=== PATIENT | male | born 1930 | race Caucasian/White ===

== ENCOUNTER 2019-06-07 10:45 | Inpatient (IN) | payer OTHER ==
[~2019-06-07] VITALS: Ht 167.6 cm; Wt 60.9 kg
--- NOTE | 2019-06-07 11:05 | NUR ---
PATIENT BIBA. PATIENT AND ORIENTED TO ROOM AND CALL LIGHT. PATIENT A/O X4. PATIENT HAS GENERALIZED WEAKNESS. PATIENTS BED TO LOWEST POSITION. PATIENT PLACE ON DIRECTOR DIETETICS DEPARTMENT AT THIS TIME. PATIENT STABLE WITH NO S/S OF DISTRESS, WILL CONTINUE TO MONITOR.
[2019-06-07 11:17] LABS: BASOPHIL % 0.3 % (0-2); PLATELET COUNT 208 x10^3mcL (130-400)
[2019-06-07 11:18] LABS: RED CELL DISTRIBUTION WIDTH 15.9 % (11.5-14.5)
--- NOTE | 2019-06-07 11:23 | NUR ---
[facility]IENT TO [facility] AT THIS TIME.
--- NOTE | 2019-06-07 11:43 | NUR ---
MADE PATIENT AND FAMILY AWARE THAT URINE SAMPLE IS NEEDED, PATIENT REFUSES STRAIGHT CATH AT THIS TIME AND STATES THAT HE WILL ATTEMPT TO GO BEDSIDE. URINAL GIVEN TO PATIENT AT THIS TIME. WILL CONTINUE TO MONITOR.
[2019-06-07 11:46] LABS: CALCIUM 8.3 mg/dL (8.5-10.1); CARBON DIOXIDE 26.2 mmol/L (21-32); CHLORIDE SERUM 103 mmol/L (98-107); CREATININE SERUM 1.3 mg/dL (0.7-1.3); GLUCOSE SERUM 193 mg/dL (74-106); POTASSIUM SERUM 5.1 mmol/L (3.5-5.1); SODIUM SERUM 138 mmol/L (136-145)
[2019-06-07 11:58] LABS: ALKALINE PHOSPHATASE 87 U/L (46-116); ALT/SGPT 13 U/L (16-63); AST/SGOT 18 U/L (15-37); BILIRUBIN TOTAL 0.8 mg/dL (0.20-1.00); HDL CHOLESTEROL 49 mg/dL (40-60); LIPASE 115 IU/L (73-393); MAGNESIUM 1.6 mg/dL (1.8-2.4); T4(THYROXINE) 11.1 ug/dL (4.7-13.3); TOTAL PROTEIN, SERUM 6.5 g/dL (6.4-8.2)
[2019-06-07 11:59] LABS: ALBUMIN 3.2 g/dL (3.4-5.0); CHOLESTEROL 105 mg/dL (<200)
--- NOTE | 2019-06-07 12:34 | NUR ---
PATIENT REMOVED AT IV AT THIS TIME. PATIENT ASSESSED, NO PROBLEMS NOTED. IV CATHETER REMOVED. ARM ELEVATED. WILL ASSESS FOR NEW IV ACCESS AT THIS TIME
[2019-06-07 13:01] LABS: UA SPECIFIC GRAVITY 1.015 (1.005-1.035); microscopic required? YES; urine erythrocyte TRACE (NEGATIVE)
[2019-06-07 13:11] LABS: AMPHETAMINE QUAL UR NONE DETECTED (See below)
--- NOTE | 2019-06-07 13:15 | NUR ---
NEW IV ACCESS TO RFA. IV INTACT AND PATENT.
--- NOTE | 2019-06-07 13:15 | NUR ---
INFORMED FAMILY AND PATENT TO NOT REMOVE IV. FAMILY AND PATIENT VERBALIZED UNDERSTANDING AT THIS TIME.
[2019-06-07] MEDS ORDERED: GLIPIZIDE5 M2 PO (14:26)
[2019-06-07] MEDS ORDERED: CARVEDILOL3.125 M1 (14:28)
[2019-06-07] MEDS ORDERED: GOOD SENSE OMEP20 MG (14:28)
[2019-06-07] MEDS ORDERED: ARICEPT5 MG (14:28)
[2019-06-07] MEDS ORDERED: LISINOPRIL2.5 MG (14:28)
--- NOTE | 2019-06-07 14:48 | NUR ---
RECEIVED PT FROM ED VIA [facility], CAME IN DUE TO WEAKNESS X1 DAY AND COUGH SINCE FRIDAY. AAOX2 (PERSON, PLACE AND BIRTHDATE). ABLE TO FOLLOW COMMANDS. SPEECH IS CLEAR. NO SOB NOTED, LUNG SOUNDS CTA, O2 SAT=99%, RA. NOTED PT HAS RUNNY NOSE. W/ PRODUCTIVE COUGH, ABLE TO EXPECTORATE WHITE PHLEGM. DENIES CHEST PAIN/PRESSURE, SR W/ BBB. DENIES ABDOMINAL DISCOMFORT. ABDOMEN IS SOFT. PER PT'S DAUGHTER, PT HAS FREQUENT URINATION. SKIN IS DRY AND INTACT. IV SITE PATENT AND INTACT. SIDE RAILS UPX2. CALL LIGHT ON REACH. HOB ELEVATED AT 30 DEG. BED ALARM ON. ENDORSED TO PRIMARY NURSE NICOLAS FOR CONTINUITY OF CARE
[2019-06-07 15:16] VITALS: BP 102/50
[2019-06-07 15:20] VITALS: Ht 167.6 cm; Wt 60.9 kg
--- NOTE | 2019-06-07 15:44 | NUR ---
DR. SOMMERS AT BEDSIDE EXAM AND INTERVIEW FAMILY MEMBERS AT BEDSIDE, PATIENT GAVE INFO TO DR. SOMMERS; PER DR. SOMMERS WILL EVAL [PATIENT TOMORROW IF LAB RESULT WNL PATIENT MAY GO HOME. MAG-OXIDE 400MG PO X 1 ADMINISTERED FOR MG 1.6 AND IVF STARTED AT 70ML/HR TO RFA IV. CALL LIGHT WITHIN REACH.
--- NOTE | 2019-06-07 17:56 | NUR ---
REPOSITION PATIENT UP IN BED FOR DINNER, AT BEDSIDE WILL HELP PATIENT WITH HIS DINNER. FINNEY OUTPUT 1000ML DARK JOSE L COLORED NOTED. CALL LIGHT WITHIN REACH.
--- NOTE | 2019-06-07 19:30 | NUR ---
RECEIVED PT FROM [facility]. PT SEEN LYING IN BED, HAS HIS EYES CLOSED, EASILY AROUSABLE TO VERBAL STIMULI. ORIENTED TO PERSON/PLACE/BIRTHDATE. ABLE TO FOLLOW SIMPLE COMMANDS. NO ARM DRIFT/FACIAL DROOP NOTED. NO SOB NOTED, LUNG SOUNDS CTA. O2 SAT-98%, RA. W/ RUNNY NOSE NOTED. DENIES CHEST PAIN/PRESSURE, SR W/ BBB, HR AT 91. DENIES ABDOMINAL DISCOMFORT. W/ CITIZEN OF [place] 16 FINNEY CATHETER DRAINING W/ YELLOW COLORED URINE. IV SITE PATENT AND INTACT. SIDE RAILS UPX2. CLAL LIGHT ON REACH. HOB ELEVATED AT 30 DEG. BED ON THE LOWEST POSITION. BED ALARM ON. WILL CONT TO MONITOR
[2019-06-07 20:03] VITALS: BP 104/52
[2019-06-07 20:04] VITALS: BP 106/68
--- NOTE | 2019-06-07 20:21 | NUR ---
PT'S DAUGHTER AT BEDSIDE. PT HAS EVEN AND UNLABORED BREATHING. NO S/S OF PAIN NOTED. CALL LIGHT ON REACH. WILL CONT TO MONITOR
--- NOTE | 2019-06-07 23:42 | NUR ---
PT HAS HIS EYES CLOSED, NO S/S OF PAIN AND SOB. WILL CONT TO MONITOR
[2019-06-08 04:42] VITALS: BP 130/57
--- NOTE | 2019-06-08 05:15 | NUR ---
DR. SHEPHERD MADE AWARE THAT PT'S RIGHT HAND IS SWOLLEN. RIGHT ARM ELEVATED W/ A PILLOW. PT IS AWAKE AND ALERT, NO C/O PAIN AND SOB. PT HAD A SOFT BM, CLEANED AND MADE COMFORTABLE. W/ VINCENTIAN 16 FINNEY CATHETER DRAINING W/ YELLOW COLORED URINE. IV SITE ON THE RFA GAUGE 20 IS PATENT AND INTACT. SIDE RAILS UPX2. CALL LIGHT ON REACH. NEEDS ARE ATTENDED. WILL CONT TO MONITOR
--- NOTE | 2019-06-08 06:59 | NUR ---
ENDORSED TO INCOMING NURSE NICOLAS FOR CONTINUITY OF CARE
--- NOTE | 2019-06-08 07:05 | NUR ---
RECEIVED PATIENT ASLEEP AROUSABLE, NO DISTRESS NOTED. NO C/O PAIN. RH SWELLING NOTED. TELE #6 SR W/ HR 78 NOTED. IV TO LFA INTACT AND INFUSING AT 70ML/HR. CALL LIGHT WITH IN REACH.
[2019-06-08 09:17] VITALS: BP 123/52
--- NOTE | 2019-06-08 10:37 | NUR ---
PATIENT RESTING IN BED NO DISTRESS NOTED, CAME TO VISIT PATIENT AND UPDATE POC. INFORM DOCTOR HAS NOT MAKE ROUND TO SEE PATIENT YET. ALL QUESTIONS ADDRESSED.
--- NOTE | 2019-06-08 12:00 | NUR ---
PATIENT SAT UP IN BED SON ASSIST PATIENT WITH HIS LUNCH. NO NEEDS ATTENDED. NO CHANGED IN TELE MONITORING SR W/ BBB HR 74. CALL LIGHT WITHIN REACH.
[2019-06-08 13:36] LABS: BASOPHIL % 0.4 % (0-2); PLATELET COUNT 194 x10^3mcL (130-400)
[2019-06-08 13:39] LABS: RED CELL DISTRIBUTION WIDTH 15.9 % (11.5-14.5)
[2019-06-08 13:57] LABS: CALCIUM 7.8 mg/dL (8.5-10.1); CARBON DIOXIDE 23.7 mmol/L (21-32); CHLORIDE SERUM 108 mmol/L (98-107); CREATININE SERUM 0.7 mg/dL (0.7-1.3); GLUCOSE SERUM 143 mg/dL (74-106); MAGNESIUM 1.7 mg/dL (1.8-2.4); PHOSPHOROUS 2.4 mg/dL (2.5-4.9); POTASSIUM SERUM 3.6 mmol/L (3.5-5.1); SODIUM SERUM 140 mmol/L (136-145)
--- NOTE | 2019-06-08 14:45 | NUR ---
PATIENT RESTING IN BED AWAKE/ALERT, CALM NO DISTRESS NOTED, NO PAIN REPORTED. CONT TO MONITOR.
[2019-06-08 14:49] VITALS: BP 128/50
--- NOTE | 2019-06-08 16:46 | NUR ---
PATIENT RESTING IN BED COMFORTABLE, NO DISTRESS NOTED. FAMILY MEMBER BACK TO ROOM. UPDATE POC WITH SON AND CM NEED TO ARRANGE HH FOR PT.
--- NOTE | 2019-06-08 18:40 | NUR ---
PATIENT LAYING IN BED COMFORTABLE, FAMILY MEMBERS LEFT. CALL LIGHT WITHIN REACH. BED ALARM IN PLACE DUE TO PATIENT FORGETFUL, WANT TO GET OOB FOR URINATE, REINFORCED PATIENT HAS FINNEY CATH. FOR URINE.
[2019-06-08 19:28] VITALS: BP 139/64
--- NOTE | 2019-06-08 19:28 | NUR ---
RECEIVED PT AWAKE ALERT X2 AND SPEAKS [place] ONLY WITH FAMILY MEMBERS AT BEDSIDE.BREATHIGN EASY AND NON-LABORED.DIMINISHED BREATHSOUNDS.F/C TO YELLOW COLORED URINE.TRACED EDEMA TO BLE.BEDALARM ON AT ALL TIMES.WILL CONTINUE TO MONITOR.
--- NOTE | 2019-06-09 04:36 | NUR ---
PT SLEPT WELL ALL NIGHT.BREATHING EASY AND NON-LABORED WITH OCCASSIONAL COUGHING NOTED.BEDALARM ON AT ALL TIMES.ALL NEEDS ANTICIPATED AND MET.WILL CONTINUE TO MONITOR.
[2019-06-09 05:40] VITALS: BP 143/58
[2019-06-09 06:26] LABS: BASOPHIL % 0.5 % (0-2); PLATELET COUNT 207 x10^3mcL (130-400)
[2019-06-09 06:41] LABS: CALCIUM 8.3 mg/dL (8.5-10.1); CARBON DIOXIDE 26.9 mmol/L (21-32); CHLORIDE SERUM 108 mmol/L (98-107); CREATININE SERUM 0.8 mg/dL (0.7-1.3); GLUCOSE SERUM 119 mg/dL (74-106); MAGNESIUM 1.7 mg/dL (1.8-2.4); PHOSPHOROUS 2.6 mg/dL (2.5-4.9); POTASSIUM SERUM 4.3 mmol/L (3.5-5.1); SODIUM SERUM 140 mmol/L (136-145)
[2019-06-09 08:37] VITALS: BP 146/66
--- NOTE | 2019-06-09 11:11 | NUR ---
TOOK TO THE RESTROOM TO HAVE STOOL. ONLY A SMEAR AND DRY FLAKES NOTED. OFFERED AND GAVE COLACE. GAVE GOOD ALONSO/RECTAL CARE WELL. WILL MONITOR FOR EFFECTIVENESS.
[2019-06-09 12:45] VITALS: BP 109/54
--- NOTE | 2019-06-09 14:18 | NUR ---
FAMILY AT BEDSIDE AND BROUGHT IN FOOD FROM [facility] AND REMINDED THEM HE IS ON A DIET OF [facility]. PATIENT CONSUMED THE FOOD THEY BROUGHT ALREADY.
[2019-06-09 17:00] VITALS: BP 138/51
--- NOTE | 2019-06-09 19:00 | NUR ---
REPORT RECEIVED FROM DAY SHIFT RN. PATIENT WAS SEEN RESTING IN BED COMFORTABLY. NO DISTRESS NOTED. A/OX2 TO PERSON, PLACE. FORGETFUL AND CONFUSED AT TIMES. CLEAR AND APPROPIATE SPEECH. DOES NOT RECALL SITUATION. BREATHING EVEN AND UNLABORED ON ROOM AIR. NO SOB OR RESP DISTRESS NOTED. DENIES CHEST PAIN/PRESSURE. NO C/O PAIN. IV TO THE RAC, INFUSING WELL. PATENT AND INTACT. NO REDNESS OR SWELLING NOTED. FINNEY CATH IN PLACE; DRAINING YELLOW URINE BY GRAVITY. COMFORT AND SAFETY MEASURES IN PLACE. BED IS LOCKED AND IN THE LOWEST POSITION. SIDE RAILS UP X2. CALL LIGHT IS WITHIN REACH. WILL CONTINUE TO MONITOR.
--- NOTE | 2019-06-09 19:00 | NUR ---
REPORT RECEIVED FROM DAY SHIFT RN. PATIENT WAS SEEN RESTING IN BED COMFORTABLY. NO DISTRESS NOTED. A/OX2 TO PERSON, PLACE. FORGETFUL AND CONFUSED AT TIMES. CLEAR AND APPROPIATE SPEECH. DOES NOT RECALL SITUATION. BREATHING EVEN AND UNLABORED ON ROOM AIR. NO SOB OR RESP DISTRESS NOTED. DENIES CHEST PAIN/PRESSURE. NO C/O PAIN. IV TO THE RFA, INFUSING WELL. PATENT AND INTACT. NO REDNESS OR SWELLING NOTED. FINNEY CATH IN PLACE; DRAINING YELLOW URINE BY GRAVITY. COMFORT AND SAFETY MEASURES IN PLACE. BED IS LOCKED AND IN THE LOWEST POSITION. SIDE RAILS UP X2. CALL LIGHT IS WITHIN REACH. WILL CONTINUE TO MONITOR.
[2019-06-09 19:59] VITALS: BP 133/55
--- NOTE | 2019-06-10 00:15 | NUR ---
RESTING IN BED W/ EYES CLOSED. NO DISTRESS NOTED. BREATHING EVEN AND UNLABORED. NO S/S OF PAIN. IVF INFUSING WELL. SAFETY MEASURES IN PLACE. CALL LIGHT IS WITHIN REACH. WILL CONTINUE TO MONITOR.
--- NOTE | 2019-06-10 03:05 | NUR ---
RESTING IN BED AND SAYING HE WANTS TO LEAVE AND REMOVED STAT LOCK. FINNEY CATH IN PLACE. NEW STAT LOCK PLACED. REORIENTED PATIENT WITH CHET KHAN. REPOSITIONED IN BED FOR COMFORT. EDUCATED TO NOT PULL ON FINNEY. CONFUSED. DENIES PAIN. SAFETY MEASURES IN PLACE. IVF INFUSING WELL. CALL LIGHT IS WITHIN REACH. WILL CONTINUE TO MONITOR.
--- NOTE | 2019-06-10 04:00 | NUR ---
PATIENT TRIED TO GET OUT OF BED. IV TO RFA CAME OUT IN THE PROCESS. TOLD PATIENT NEW IV WILL HAVE TO BE PLACED, BUT PATIENT REFUSED. NOTIFIED DR SHEPHERD.
[2019-06-10 05:42] VITALS: BP 148/64
--- NOTE | 2019-06-10 06:11 | NUR ---
RESTING IN LONG INTERVALS THROUGHOUT THE NIGHT. NO ACUTE CHANGES NOTED. NO DISTRESS NOTED. BREATHING EVEN AND UNLABORED ON ROOM AIR. NO C/O PAIN AT THIS TIME. DENIES CP. NO IV ACCESS. FINNEY CLAMPED AT THIS TIME FOR BLADDER TRAINING. ALL NEEDS AND CONCERNS ADDRESSED. SAFETY MEASURES IN PLACE. CALL LIGHT IS WITHIN REACH. WILL ENDORSE CARE TO DAY SHIFT RN.
[2019-06-10 06:31] LABS: BASOPHIL % 0.5 % (0-2); PLATELET COUNT 233 x10^3mcL (130-400)
[2019-06-10 06:42] LABS: CALCIUM 8.3 mg/dL (8.5-10.1); CARBON DIOXIDE 26.1 mmol/L (21-32); CHLORIDE SERUM 105 mmol/L (98-107); CREATININE SERUM 0.8 mg/dL (0.7-1.3); GLUCOSE SERUM 138 mg/dL (74-106); RED CELL DISTRIBUTION WIDTH 15.8 % (11.5-14.5); SODIUM SERUM 138 mmol/L (136-145)
--- NOTE | 2019-06-10 08:00 | NUR ---
PATIENT RECEIVED ALERT AND ORIENTED TIMES TWO. IV OUT AND PATIENT HAD REFUSED IV START LAST NIGHT. NOW HE IS GOING TO BE DISCAHRGE NO INDICATION FOR RESTART AT THIS TIME PATIEN TAHS DIMINISHED BREATH SOUNDS AND BOWEL SOUNDS ARE ACTIVE. PATEINT HAS BEEN STITTING UP EATTING AND TOELRATE WELL. TOOK MEDICATIONS WTIHOUT ANY ISSUES AND HAS BEEN AMBULATORY AND A LITTLE UNSTEADY. FINNEY TO BE REMOVED AND PATIENT HAS BEEN WITH GOOD OUTPUT. PATIENT REMINDED OF SAFETY ISSUE SAND PATIENT HAS PULSES PALPABLE AND NO EDEMA AT THIS TIME. FAMILY IS SUPPORTIVE WITH CARE AND PATIENT IS FOR DISCHARGE HOME WITH HOME HEALTH WHEN CAN BE ARRANGED.
[2019-06-10 08:44] VITALS: BP 122/69
--- NOTE | 2019-06-10 10:53 | NUR ---
VITALS AT THIS TIME AT 97.4, 70, 17, 122/69. PATIENT DENIES PAIN AT THIS TIME.
[2019-06-10 11:47] VITALS: BP 122/69
--- NOTE | 2019-06-10 14:29 | NUR ---
PHYSICAL THERAPY DAILY NOTES CO-SIGN All documentation done by the Director Teen Post for 06/10/19 has been reviewed. I agree with the documentation. Reviewed/Co-Signed by: Svitlana Watkins PT Documentation Done by:JALEEL BERMUDEZ PTA
--- NOTE | 2019-06-10 14:31 | NUR ---
DISCHARGED TO HOME WITH ALL BELONGINGS ND WAS ADVISED IN [facility] WITH FAMILY PRESENT PLAN AND FOLLOW. NO ACUTE DISTRESS AT THIS TIME.
== END 2019-06-10 13:15 | disposition home or self-care (01) | DRG 640 ==
LOC: ED 10:45 → DU 14:05 → MU 06-09 09:53
PROVIDERS: Emergency Medicine; Internal Medicine; ADMIT Internal Medicine
DX: E86.0 Dehydration (principal); G93.41 Metabolic encephalopathy; E44.1 Mild protein-calorie malnutrition; I95.89 Other hypotension; E83.42 Hypomagnesemia; R05 Cough; K59.00 Constipation, unspecified; D64.9 Anemia, unspecified; E11.9 Type 2 diabetes mellitus without complications; E78.5 Hyperlipidemia, unspecified; I25.2 Old myocardial infarction; Z68.21 Body mass index [BMI] 21.0-21.9, adult; Z79.84 Long term (current) use of oral hypoglycemic drugs
CPT/HCPCS: 36600; 82962; 83880; 87804; 97116-GP; 97530-GP; G0378; G0480; J1956; J7030; Q0092